=== PATIENT | female | born 1970 | race Caucasian/White ===

== ENCOUNTER 2020-12-12 11:21 | Emergency (ER) | payer OTHER, SELFPAY ==
[2020-12-12 11:30] VITALS: BP 163/96; PULSE 72; RESP 14; TEMP 37.6; O2SAT 97; BMI 23.3
--- NOTE | 2020-12-12 11:38 | DI.CT.S_ITS ---
PROCEDURE: CT HEAD/BRAIN WO CON INDICATIONS: sudden vision loss TECHNIQUE: Noncontrast 4.5 mm thick angled axial sections acquired from the foramen magnum to the vertex, with coronal and sagittal reformats. For radiation dose reduction, the following was used: automated exposure control, adjustment of mA and/or kV according to patient size. COMPARISON: None. FINDINGS: Image quality: Excellent. CSF spaces: Basal cisterns are patent. No extra-axial fluid collections. Ventricles are normal in size and shape. Brain: No midline shift. No intracranial masses or hemorrhage. Reynolds-white matter interface is normal. Low-density seen in the region of the kristen on the sagittal reformats is felt to be artifact. Skull and face: Calvarium and visualized facial bones are intact, without suspicious lesions. Sinuses: Visualized sinuses and mastoids are clear. IMPRESSION: Unremarkable head CT. No evidence of acute stroke, hemorrhage, or mass. Dictated by: Armand Alvarez M.D. on 12/12/2020 at 12:05 Approved by: Armand Alvarez M.D. on 12/12/2020 at 12:07
[2020-12-12 11:56] LABS: Add Manual Diff / Slide Review NO; Basophils Absolute Auto 0 /uL (0-100); Basophils Percent Auto 0.5 % (0-2); Eosinophils Absolute Auto 100 /uL (0-450); Eosinophils Percent Auto 1.4 % (2-4); Hematocrit 41.4 % (36-46); Hemoglobin 14.2 g/dL (12.0-16.0); Lymphocytes Absolute Auto 1600 /uL (1100-4500); Lymphocytes Percent Auto 30.4 % (25-40); Mean Corpuscular HGB Conc 34.3 % (30-36); Mean Corpuscular Hemoglobin 31.8 PG (26-34); Mean Corpuscular Volume 92.6 fL (80-100); Monocytes Absolute Auto 400 /uL (0-900); Monocytes Percent Auto 8.3 % (3-14); Neutrophils Absolute Auto 3200 /uL (1500-7000); Neutrophils Percent Auto 59.4 % (50-75); Platelet Count 232 X10^3/uL (150-400); Red Blood Cell Count 4.47 X10^6/uL (4.0-5.2); Red Cell Distribution Width 12.6 % (11.6-14.8); White Blood Cell Count 5.3 X10^3/uL (4.5-11.0)
[2020-12-12 12:12] LABS: Alanine Aminotransferase 20 IU/L (<35); Albumin 4.6 g/dL (3.5-5.0); Albumin Globulin Ratio 1.6 (1.0-2.8); Alkaline Phosphatase 56 U/L (38-126); Aspartate Aminotransferase 29 IU/L (14-36); BUN Creatinine Ratio 22.6 (6-22); Blood Urea Nitrogen 12 mg/dL (7-17); Calcium 9.5 mg/dL (8.4-10.2); Carbon Dioxide 25 mmol/L (22-32); Chloride 102 mmol/L (98-107); Creatine Kinase 47 U/L (30-135); Estimated Glomerular Filt Rate > 60.0 mL/min (>60); Globulin 2.8 g/dL (1.7-4.1); Glucose 138 mg/dL (70-100); HEMOLYSIS 30 (0-50); Sodium 137 mmol/L (137-145); Total Protein 7.4 g/dL (6.3-8.2)
[2020-12-12 12:24] LABS: Troponin I < 0.012 ng/mL (0.01-0.034)
--- NOTE | 2020-12-12 12:28 | ED.NEUROSD ---
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 she noticed decreased peripheral vision in her left eye. This described as blurry vision, not no vision. She states that progressed to blurry peripheral vision in her right eye. She noticed lines down the center of both eyes. She states after that she felt sweaty and weak. She states she felt panicky. She states this episode lasted for approximately 20 minutes and then got better. She has history of a pacemaker, which she states kicks in when her heart rate gets too low. She states that she has to have a heart block, which is why she got the pacemaker. Dr. Barajas is her telephone order clerk room service. She denies any chest pain, felt shortness of breath but thinks that might be related to anxiety. She does have history of coronavirus in September. She is fully vaccinated. She does note that she has a significant amount of increased stress due to work stress, World stress, recent child going to college in having a hard time, difficult divorce ongoing for the past several years. She denies any nausea or vomiting, she denies any weakness. She denies any slurred speech, weakness or numbness during this episode. She states her only medication lately is Synthroid due to hypothyroid. She states her vision is completely normal now, no history of eye surgeries, is wearing her glasses and not contacts today. On Anticoagulants: No Related Data Home Medications Medication Instructions Recorded Confirmed LEVOTHYROXINE SODIUM (LEVOTHROID) 0 #0 11/26/11 levonorgestrel 20 mcg/24 hours (7 52 mg IU #0 11/26/11 yrs) 52 mg intrauterine device (Mirena) Previous Rx's Medication Instructions Recorded Fluoxetine Hydrochloride (SARAFEM) 20 mg PO QDAY #30 12/19/11 Allergies Allergy/AdvReac Type Severity Reaction Status Date / Time INGREDIENT: NKDA - NO KNOWN Allergy Unknown Uncoded 05/20/17 12:03 DRUG ALLERGIES Review of Systems <[facility] - Last Filed: 12/12/20 15:17> Review of Systems Narrative: GENERAL: Denies chills, fatigue, malaise, fever, sweats. HEENT: See HPI RESPIRATORY: Denies dyspnea, cough, wheezing, hemoptysis, sputum. CARDIOVASCULAR: Denies chest pain, palpitations, orthopnea, edema, GASTROINTESTINAL: Denies nausea, vomiting, abdominal pain, diarrhea, constipation, melena. : Denies dysuria, frequency, incontinence, hematuria, urinary retention. MUSCULOSKELETAL: denies weakness, joint pain, or bony pain SKIN: Denies rash, skin lesions, or other NEUROLOGIC: See HPI PSYCHIATRIC: No concerning psychosocial issues. 12 point review of systems is negative except for those stated above Hematologic/Lymphatic On Anticoagulants: No Patient History <[facility]STEN [facility] - Last Filed: 12/12/20 15:17> Social History Smoking Status: Never smoker Smoking Status: Never smoker alcohol intake frequency: holidays/special occasions only Substance Use Type: marijuana Exam <[facility] - Last Filed: 12/12/20 15:17> Narrative Exam Narrative: GENERAL: This is a well-nourished, well-developed patient, in no acute distress HEAD: Atraumatic. Normocephalic. No temporal or scalp tenderness. EYES: Pupils equal round and reactive. Extraocular motions intact. No scleral icterus. No injection or drainage. ENT: Nose without bleeding, purulent drainage or septal hematoma. Throat without erythema, tonsillar hypertrophy or exudate. Uvula midline. Airway patent. NECK: Trachea midline. No JVD or lymphadenopathy. Supple, nontender, no meningeal signs. CARDIOVASCULAR: Regular rate and rhythm RESPIRATORY: Clear to auscultation. Breath sounds equal bilaterally. No wheezes, rales, or rhonchi. No cough. No increased respiratory effort. No accessory muscle use. GASTROINTESTINAL: Abdomen soft, non-tender, nondistended. No hepato-splenomegaly, or palpable masses. No guarding. EXTREMITIES: No clubbing, cyanosis, or edema. No joint tenderness, effusion, or edema noted. BACK: Nontender without deformity or crepitance. No flank tenderness. NEURO: AOx3. SKIN: No rash or erythema on visible skin Initial Vital Signs Initial Vital Signs: Vital Signs Temperature 99.6 F 12/12/20 11:30 Pulse Rate 72 12/12/20 11:30 Respiratory Rate 14 12/12/20 11:30 Blood Pressure 163/96 H 12/12/20 11:30 Pulse Oximetry 97 12/12/20 11:30 <Misael Pena DO - Last Filed: 12/12/20 15:40> Initial Vital Signs Initial Vital Signs: Vital Signs Temperature 99.6 F 12/12/20 11:30 Pulse Rate 72 12/12/20 11:30 Respiratory Rate 14 12/12/20 11:30 Blood Pressure 163/96 H 12/12/20 11:30 Pulse Oximetry 97 12/12/20 11:30 Scores <JAMAAL Benjamin - Last Filed: 12/12/20 15:17> GCS Hamler coma scale eye opening: Spontaneous Joseph coma scale verbal response: Orientated Hamler coma scale motor response: Obey commands Joseph coma scale total score: 15 NIH Stroke Scale Level of Conciousness: Alert, keenly responsive Ask month/age: Answers both questions correctly. Open/close eyes, close hand: Performs both tasks correctly Best gaze horizontal: Normal Visual unger: No visual loss Facial palsy: Normal symetrical movement Left arm drift: No drift for full 10 sec Right arm drift: No drift for full 10 sec Left leg drift: No drift for full 5 sec Right leg drift: No drift for full 5 sec Limb ataxia: Absent Sensory on face/arms/legs: Normal, no sensory loss Best language: No aphasia, normal Dysarthria: Normal Extinction or inattention: No abnormality Total NIH Stroke scale score: 0 <Misael Pena DO - Last Filed: 12/12/20 15:40> GCS Joseph coma scale total score: 15 NIH Stroke Scale Total NIH Stroke scale score: 0 Course <JAMAAL Benjamin - Last Filed: 12/12/20 15:17> Orders Ordered: ED Orders 12/12/20 11:30 EKG-12 Lead Stat 12/12/20 11:38 CT head/brain wo con Stat 12/12/20 11:45 CMP [Comprehensive Metabolic Panel] Stat Complete Blood Count AUTO DIFF Stat Magnesium Stat Thyroid Stimulating Hormone Stat Troponin & CK Cardiac Panel Stat Vital Signs Vital signs: Vital Signs - 8 hr 12/12/20 11:30 12/12/20 14:55 Temperature 99.6 F Pulse Rate 72 57 L Respiratory Rate 14 Blood Pressure 163/96 H 138/89 Pulse Oximetry 97 99 <Misael Pena DO - Last Filed: 12/12/20 15:40> Orders Ordered: ED Orders 12/12/20 11:30 EKG-12 Lead Stat 12/12/20 11:38 CT head/brain wo con Stat 12/12/20 11:45 CMP [Comprehensive Metabolic Panel] Stat Complete Blood Count AUTO DIFF Stat Magnesium Stat Thyroid Stimulating Hormone Stat Troponin & CK Cardiac Panel Stat Vital Signs Vital signs: Vital Signs - 8 hr 12/12/20 11:30 12/12/20 14:55 Temperature 99.6 F Pulse Rate 72 57 L Respiratory Rate 14 Blood Pressure 163/96 H 138/89 Pulse Oximetry 97 99 MDM - Neuro Symptoms/Deficit <ROBBY Benjamin- - Last Filed: 12/12/20 15:17> Lab Data Result diagrams: 12/12/20 11:45 12/12/20 11:45 Labs: Lab Results 12/12/20 12/12/20 12/12/20 Range/Units 11:45 11:45 11:45 WBC 5.3 (4.5-11.0) X10^3/uL RBC 4.47 (4.0-5.2) X10^6/uL Hgb 14.2 (12.0-16.0) g/dL Hct 41.4 (36-46) % MCV 92.6 (80-100) fL MCH 31.8 (26-34) PG MCHC 34.3 (30-36) % RDW 12.6 (11.6-14.8) % Plt Count 232 (150-400) X10^3/uL Neut % (Auto) 59.4 (50-75) % Lymph % (Auto) 30.4 (25-40) % Norton % (Auto) 8.3 (3-14) % Eos % (Auto) 1.4 L (2-4) % Baso % (Auto) 0.5 (0-2) % Neut # (Auto) 3200 (5705-1196) /uL Lymph # (Auto) 1600 (8628-5774) /uL Norton # (Auto) 400 (0-900) /uL Eos # (Auto) 100 (0-450) /uL Baso # (Auto) 0 (0-100) /uL Sodium 137 (137-145) mmol/L Potassium 4.0 (3.4-5.1) mmol/L Chloride 102 (98-107) mmol/L Carbon Dioxide 25 (22-32) mmol/L BUN 12 (7-17) mg/dL Creatinine 0.53 (0.52-1.04) mg/dL Estimated GFR > 60.0 (>60) mL/min BUN/Creatinine Ratio 22.6 H (6-22) Glucose 138 H (70-100) mg/dL Calcium 9.5 (8.4-10.2) mg/dL Magnesium (1.6-2.3) mg/dL Total Bilirubin 1.0 (0.2-1.3) mg/dL AST 29 (14-36) IU/L ALT 20 (<35) IU/L Alkaline Phosphatase 56 (38-126) U/L Total Creatine Kinase 47 (30-135) U/L CK-MB (CK-2) TNP CK-MB (CK-2) Rel Index TNP Troponin I < 0.012 (0.01-0.034) ng/mL Total Protein 7.4 (6.3-8.2) g/dL Albumin 4.6 (3.5-5.0) g/dL Globulin 2.8 (1.7-4.1) g/dL Albumin/Globulin Ratio 1.6 (1.0-2.8) TSH (0.47-4.68) uIU/mL 12/12/20 12/12/20 Range/Units 11:45 11:45 WBC (4.5-11.0) X10^3/uL RBC (4.0-5.2) X10^6/uL Hgb (12.0-16.0) g/dL Hct (36-46) % MCV (80-100) fL MCH (26-34) PG MCHC (30-36) % RDW (11.6-14.8) % Plt Count (150-400) X10^3/uL Neut % (Auto) (50-75) % Lymph % (Auto) (25-40) % Norton % (Auto) (3-14) % Eos % (Auto) (2-4) % Baso % (Auto) (0-2) % Neut # (Auto) (2176-0516) /uL Lymph # (Auto) (2311-6040) /uL Norton # (Auto) (0-900) /uL Eos # (Auto) (0-450) /uL Baso # (Auto) (0-100) /uL Sodium (137-145) mmol/L Potassium (3.4-5.1) mmol/L Chloride (98-107) mmol/L Carbon Dioxide (22-32) mmol/L BUN (7-17) mg/dL Creatinine (0.52-1.04) mg/dL Estimated GFR (>60) mL/min BUN/Creatinine Ratio (6-22) Glucose (70-100) mg/dL Calcium (8.4-10.2) mg/dL Magnesium 2.0 (1.6-2.3) mg/dL Total Bilirubin (0.2-1.3) mg/dL AST (14-36) IU/L ALT (<35) IU/L Alkaline Phosphatase (38-126) U/L Total Creatine Kinase (30-135) U/L CK-MB (CK-2) CK-MB (CK-2) Rel Index Troponin I (0.01-0.034) ng/mL Total Protein (6.3-8.2) g/dL Albumin (3.5-5.0) g/dL Globulin (1.7-4.1) g/dL Albumin/Globulin Ratio (1.0-2.8) TSH 1.97 (0.47-4.68) uIU/mL Urine Dip Bedside Urine Glucose Negative Bedside Urine Bilirubin - Negative Bedside Urine Ketone - Negative Urine Specific [place] 1.015 Bedside Urine Occult Blood - Negative Bedside Urine pH 6.5 Bedside Urine Protein - Negative Bedside Urine Urobilinogen - Negative Bedside Urine Nitrite - Negative Bedside Urine Leukocytes - Negative Esterase Imaging Data CT scan - head: Radiologist's Impression: [address] [place] [id number] Scan Report Signed Patient: Rianna Nunez MR#: [id number] : 1970 Acct:[id number] Age/Sex: 50 / F Date of Service: 12/12/20 Loc: ED Accession Number: [id number] ?? Procedure: CT head/brain wo con Ordering Provider: Misael Pena D.O. PROCEDURE:? CT HEAD/BRAIN WO CON ? INDICATIONS:? sudden vision loss ? TECHNIQUE:? Noncontrast 4.5 mm thick angled axial sections acquired from the foramen magnum to the vertex, with coronal and sagittal reformats.? For radiation dose reduction, the following was used:? automated exposure control, adjustment of mA and/or kV according to patient size.? ? COMPARISON:? None. ? FINDINGS:? Image quality:? Excellent.? ? CSF spaces:? Basal cisterns are patent.? No extra-axial fluid collections.? Ventricles are normal in size and shape.? ? Brain:? No midline shift.? No intracranial masses or hemorrhage.? Reynolds-white matter interface is normal.? Low-density seen in the region of the kristen on the sagittal reformats is felt to be artifact. ? Skull and face:? Calvarium and visualized facial bones are intact, without suspicious lesions.? ? Sinuses:? Visualized sinuses and mastoids are clear.? ? IMPRESSION:? Unremarkable head CT.? No evidence of acute stroke, hemorrhage, or mass. ? ? Dictated by: Armand Alvarez M.D. on 12/12/2020 at 12:05 ? ? Approved by: Armand Alvarez M.D. on 12/12/2020 at 12:07 ? [facility] Narrative Medical decision making narrative: The patient is a 50-year-old female who presents with a chief complaint of bilateral blurry vision in her peripheral vision only. She denies any symptoms throughout her emergency department stay. EKG has no acute findings, troponin is negative, patient denies any chest pain which is reassuring. Urine has no signs of infection. CBC CMP largely within normal limits, magnesium within normal limits, TSH within normal limits. Considered etiology such as TIA, however her transient peripheral vision blurriness was bilateral, decreasing possibility of CVA, stroke etcetera. The patient also has a negative head CT, NIH of 0. We discussed at length the fact that her troponin is negative, EKG has no acute findings, patient discussed ocular concerns regarding eye strain. Discussed patient history, exam, labs and imaging with DR pena who states patient is able to be dcd. I discussed at length strict follow-up with primary care provider. The patient is concerned about anxiety as she is going through a lot of stress at home, difficult of worse etcetera. I discussed that she should on rest may be impact that stress and anxiety can home a common encouraged follow-up with primary care provider. I discussed at length coming back to ER for acute concerns did give patient several days off work so that she can get in with follow-up. Patient has no questions or concerns upon discharge states understanding of return precautions as well as follow-up care. <Misael Pena, DO - Last Filed: 12/12/20 15:40> Lab Data Labs: Lab Results 12/12/20 12/12/20 12/12/20 Range/Units 11:45 11:45 11:45 WBC 5.3 (4.5-11.0) X10^3/uL RBC 4.47 (4.0-5.2) X10^6/uL Hgb 14.2 (12.0-16.0) g/dL Hct 41.4 (36-46) % MCV 92.6 (80-100) fL MCH 31.8 (26-34) PG MCHC 34.3 (30-36) % RDW 12.6 (11.6-14.8) % Plt Count 232 (150-400) X10^3/uL Neut % (Auto) 59.4 (50-75) % Lymph % (Auto) 30.4 (25-40) % Norton % (Auto) 8.3 (3-14) % Eos % (Auto) 1.4 L (2-4) % Baso % (Auto) 0.5 (0-2) % Neut # (Auto) 3200 (9981-2780) /uL Lymph # (Auto) 1600 (4388-9016) /uL Norton # (Auto) 400 (0-900) /uL Eos # (Auto) 100 (0-450) /uL Baso # (Auto) 0 (0-100) /uL Sodium 137 (137-145) mmol/L Potassium 4.0 (3.4-5.1) mmol/L Chloride 102 (98-107) mmol/L Carbon Dioxide 25 (22-32) mmol/L BUN 12 (7-17) mg/dL Creatinine 0.53 (0.52-1.04) mg/dL Estimated GFR > 60.0 (>60) mL/min BUN/Creatinine Ratio 22.6 H (6-22) Glucose 138 H (70-100) mg/dL Calcium 9.5 (8.4-10.2) mg/dL Magnesium (1.6-2.3) mg/dL Total Bilirubin 1.0 (0.2-1.3) mg/dL AST 29 (14-36) IU/L ALT 20 (<35) IU/L Alkaline Phosphatase 56 (38-126) U/L Total Creatine Kinase 47 (30-135) U/L CK-MB (CK-2) TNP CK-MB (CK-2) Rel Index TNP Troponin I < 0.012 (0.01-0.034) ng/mL Total Protein 7.4 (6.3-8.2) g/dL Albumin 4.6 (3.5-5.0) g/dL Globulin 2.8 (1.7-4.1) g/dL Albumin/Globulin Ratio 1.6 (1.0-2.8) TSH (0.47-4.68) uIU/mL 12/12/20 12/12/20 Range/Units 11:45 11:45 WBC (4.5-11.0) X10^3/uL RBC (4.0-5.2) X10^6/uL Hgb (12.0-16.0) g/dL Hct (36-46) % MCV (80-100) fL MCH (26-34) PG MCHC (30-36) % RDW (11.6-14.8) % Plt Count (150-400) X10^3/uL Neut % (Auto) (50-75) % Lymph % (Auto) (25-40) % Norton % (Auto) (3-14) % Eos % (Auto) (2-4) % Baso % (Auto) (0-2) % Neut # (Auto) (8484-5867) /uL Lymph # (Auto) (7584-2297) /uL Norton # (Auto) (0-900) /uL Eos # (Auto) (0-450) /uL Baso # (Auto) (0-100) /uL Sodium (137-145) mmol/L Potassium (3.4-5.1) mmol/L Chloride (98-107) mmol/L Carbon Dioxide (22-32) mmol/L BUN (7-17) mg/dL Creatinine (0.52-1.04) mg/dL Estimated GFR (>60) mL/min BUN/Creatinine Ratio (6-22) Glucose (70-100) mg/dL Calcium (8.4-10.2) mg/dL Magnesium 2.0 (1.6-2.3) mg/dL Total Bilirubin (0.2-1.3) mg/dL AST (14-36) IU/L ALT (<35) IU/L Alkaline Phosphatase (38-126) U/L Total Creatine Kinase (30-135) U/L CK-MB (CK-2) CK-MB (CK-2) Rel Index Troponin I (0.01-0.034) ng/mL Total Protein (6.3-8.2) g/dL Albumin (3.5-5.0) g/dL Globulin (1.7-4.1) g/dL Albumin/Globulin Ratio (1.0-2.8) TSH 1.97 (0.47-4.68) uIU/mL Urine Dip Bedside Urine Glucose Negative Bedside Urine Bilirubin - Negative Bedside Urine Ketone - Negative Urine Specific [place] 1.015 Bedside Urine Occult Blood - Negative Bedside Urine pH 6.5 Bedside Urine Protein - Negative Bedside Urine Urobilinogen - Negative Bedside Urine Nitrite - Negative Bedside Urine Leukocytes - Negative Esterase Discharge Plan Departure Patient Disposition: Home Clinical Impression: Vision changes Instructions: DI for Visual Field Disturbances Activity Restrictions/Additional Instructions: Thank you for trusting us with your care today. As discussed, your evaluation here is very reassuring. There is no evidence of stroke, heart attack, acute electrolyte abnormality, urinary tract infection. Your TSH is in normal range. Please rest over the next few days, push fluids, try to avoid long hours in front of a computer. As discussed, please follow-up with primary care provider in the next few days. Please call them and get in for emergency department follow-up. I have provided a work note for you to help facilitate your follow-up and rest. Please come back to the emergency department for any acute concerns. Prescriptions: No Action levonorgestrel [Mirena] 1 EACH intrauterine device 52 mg IU Qty: 0 RF: 0 LEVOTHYROXINE SODIUM (LEVOTHROID) 0 Qty: 0 RF: 0 Fluoxetine Hydrochloride (SARAFEM) 20 mg PO QDAY Qty: 30 RF: 6 Referrals: Dara Shah PA-C [Primary Care Provider] - Stand Alone Forms: Work Release Note <Misael Pena, - Last Filed: 12/12/20 15:40> [facility]: Dr Pena Co-Sign Statement: I was available for consultation during this patient's emergency department visit. This chart is signed by myself for administrative purposes only. I did not have direct contact with this patient during this visit. They were seen independently by the APC.
[2020-12-12 14:03] LABS: Thyroid Stimulating Hormone 1.97 uIU/mL (0.47-4.68)
[2020-12-12 14:55] VITALS: BP 138/89; PULSE 57; O2SAT 99
--- NOTE | 2020-12-17 13:32 | PC.NURSE ---
Pt called requesting FMLA paperwork filled out. Provider who saw pt is not on duty nor is returning in timely manner. Transferred to medical records for further assistance. Also encouraged to f/u w/ her PCP.
== END 2020-12-12 14:56 | disposition home or self-care (01) ==
PROVIDERS: Emergency Medicine; Emergency Provider Nurse Practitioner Family; PCP Physician Assistant
DX: H53.9 Unspecified visual disturbance (principal); F41.9 Anxiety disorder, unspecified; R06.02 Shortness of breath
CPT/HCPCS: 36415; 70450; 80053; 81003; 82550; 83735; 84443; 84484; 85025; 93005; 99283; 99284